=== PATIENT | female | born 1945 | race Two or more races ===

== ENCOUNTER 2023-01-23 15:37 | Outpatient (CLI) | payer OTHER | END 2023-01-23 15:38 | disposition home or self-care (01) | LOC: ULT 15:37 | PROVIDERS: ATTEND Internal Medicine Nephrology | DX: N18.4 Chronic kidney disease, stage 4 (severe) (principal); M79.89 Other specified soft tissue disorders | CPT/HCPCS: 76770 ==

== ENCOUNTER 2023-12-20 07:53 | Outpatient (CLI) | payer OTHER, MEDICAID | END 2023-12-20 07:54 | disposition home or self-care (01) | LOC: ULT 07:53 | PROVIDERS: ATTEND Internal Medicine Gastroenterology | DX: R10.11 Right upper quadrant pain (principal); K59.09 Other constipation; D69.6 Thrombocytopenia, unspecified | CPT/HCPCS: 76705 ==

== ENCOUNTER 2024-09-30 10:36 | Outpatient (CLI) | payer OTHER, MEDICAID | END 2024-09-30 10:37 | disposition home or self-care (01) | LOC: BICRAD 10:36 | PROVIDERS: ATTEND Neurological Surgery | DX: M51.360 Other intervertebral disc degeneration, lumbar region with discogenic back pain only (principal); M43.16 Spondylolisthesis, lumbar region; M47.816 Spondylosis without myelopathy or radiculopathy, lumbar region | CPT/HCPCS: 72120 ==